=== PATIENT | female | born 2000 | race Hispanic/Latino ===

== ENCOUNTER 2022-04-12 11:30 | Emergency (ER) | payer OTHER, SELFPAY ==
[2022-04-12 11:57] VITALS: BP 113/64; PULSE 86; RESP 16; TEMP 36.3; O2SAT 100; BMI 30.1
[2022-04-12 12:36] LABS: Hematocrit 39.1 % (36-46); Hemoglobin 13.4 g/dL (12.0-16.0)
[2022-04-12 12:45] LABS: Bacteria Urine Few (2-10); Culture Indicated Urine Cult Not Indicated; RBC Urine 1-5/HPF (0-5/HPF); Squamous Epithelial Cell Urine 1-5 /HPF (0-5/HPF); WBC Urine 0-1/HPF (0-5/HPF)
[2022-04-12 13:29] VITALS: BP 102/64; PULSE 98; O2SAT 100
[2022-04-12 13:30] VITALS: BP 105/68; PULSE 91; O2SAT 100
[2022-04-12 13:36] LABS: HCG Quantitative /Beta subunit 73074 mIU/mL
[2022-04-12 14:00] VITALS: BP 111/72; PULSE 91; O2SAT 100
--- NOTE | 2022-04-12 14:19 | ED.PREGNANCY ---
HPI - <Lea Lazo PA-C - Last Filed: 04/12/22 14:33> General Chief complaint: Vaginal Bleeding Stated complaint: sent by miscarriage Time Seen by Provider: 04/12/22 12:14 Source: patient Mode of arrival: Ambulatory History of Present Illness HPI Narrative: 21-year-old female presents to the ED with 1 week of vaginal bleeding during . Patient states that her bleeding started 1 week prior, for which she was seen at the [facility], a ultrasound was performed to confirm a single intrauterine , serum hCG of 38,000. Patient went to the [facility] for a follow-up today, they sent her to the ED for further evaluation given that she has continued to spot. Patient states that her bleeding has stayed as spotting, she only sees blood when she wipes. Patient also endorses very sporadic, minimal pelvic cramping. Patient denies fever, chills, chest pain, shortness of breath. Patient has an OBGYN appointment with Dr. Vieira towards the end of this month. Related Data Allergies Allergy/AdvReac Type Severity Reaction Status Date / Time No Known Drug Allergies Allergy Verified 04/12/22 11:57 Review of Systems <Lea Lazo PA-C - Last Filed: 04/12/22 14:33> Review of Systems ROS Unobtainable: All systems reviewed & are unremarkable except as noted in HPI and below Constitutional Constitutional: Denies chills, Denies fatigue, Denies fever(s), Denies frequent falls, Denies lethargy and Denies weakness Eyes Eyes: Denies change in vision, Denies eye discharge, Denies irritation and Denies loss of vision ENT Ears, Nose, Mouth, and Throat: Denies change in voice, Denies dizziness, Denies neck pain, Denies sore throat and Denies throat swelling Cardiovascular Cardiovascular: Denies chest pain, Denies irregular heart rhythm, Denies lightheadedness, Denies palpitations, Denies dyspnea, Denies dyspnea on exertion and Denies orthopnea Respiratory Respiratory: Denies cough, Denies dyspnea, Denies dyspnea on exertion and Denies wheezing Gastrointestinal Gastrointestinal: Denies abdominal pain, Denies change in bowel habits, Denies diarrhea, Denies nausea and Denies vomiting Genitourinary Genitourinary: Reports abnormal vaginal bleeding, Denies hematuria, Denies flank pain, Denies urinary incontinence and Denies urinary urgency Musculoskeletal Musculoskeletal: Denies back pain, Denies muscle weakness, Denies neck pain, Denies numbness and Denies tingling Integumentary/Breasts Skin/Breast: Denies pruritus, Denies erythema, Denies rash and Denies wounds Neurologic Neurologic: Denies behavioral changes, Denies confusion, Denies dizziness, Denies frequent falls, Denies loss of vision, Denies numbness, Denies tingling and Denies weakness Psychiatric Psychiatric: Denies anxiety, Denies behavioral changes, Denies confusion, Denies depression, Denies homicidal ideation and Denies suicidal ideation Endocrine Endocrine: Denies fatigue, Denies flushing and Denies palpitations Hematologic/Lymphatic Hematologic/Lymphatic: Denies easy bruising Allergic/Immunologic Allergic/Immunologic: Denies urticaria, Denies throat swelling and Denies wheezing Exam <Lea Lazo PA-C - Last Filed: 04/12/22 14:33> Narrative Exam Narrative: Const General:?cooperative, healthy appearing and comfortable [facility] Head:?normal to inspection Ears:?hearing grossly normal bilaterally Nose:?external nose normal Face and sinus:?normal facial exam and sinuses nontender Mouth:?oral mucosae normal Throat:?posterior oropharynx normal Eyes General:?appearance normal, both eyes and all related structures Neck Neck:?normal visual inspection and no lymphadenopathy noted Resp Effort & Inspection:?normal respiratory effort Auscultation:?clear to auscultation bilaterally Cardio Rate:?regular rate Rhythm:?regular rhythm GI Abdomen is soft, nontender, nondistended. Neuro General:?patient alert, patient awake and patient oriented x3 Initial Vital Signs Initial Vital Signs: Vital Signs Temperature 97.3 F L 04/12/22 11:57 Pulse Rate 86 04/12/22 11:57 Respiratory Rate 16 04/12/22 11:57 Blood Pressure 113/64 04/12/22 11:57 Pulse Oximetry 100 04/12/22 11:57 Oxygen Delivery Method 04/12/22 11:57 <Jaiden Ingram DO - Last Filed: 04/12/22 15:16> Initial Vital Signs Initial Vital Signs: Vital Signs Temperature 97.3 F L 04/12/22 11:57 Pulse Rate 86 04/12/22 11:57 Respiratory Rate 16 04/12/22 11:57 Blood Pressure 113/64 04/12/22 11:57 Pulse Oximetry 100 04/12/22 11:57 Oxygen Delivery Method 04/12/22 11:57 Course <Lea Lazo PA-C - Last Filed: 04/12/22 14:33> Orders Ordered: ED Orders 04/12/22 12:05 Urine Microscopic Stat 04/12/22 12:09 ABO RH Type Stat HCG Quantitative /Beta subunit Stat Hemoglobin and Hematocrit Stat Vital Signs Vital signs: Vital Signs - 8 hr 04/12/22 11:57 04/12/22 13:29 04/12/22 13:29 Temperature 97.3 F L Pulse Rate 86 98 H Respiratory Rate 16 Blood Pressure 113/64 102/64 Pulse Oximetry 100 100 Oxygen Delivery Method Room Air 04/12/22 13:30 04/12/22 13:30 04/12/22 14:00 Temperature Pulse Rate 91 H Respiratory Rate Blood Pressure 105/68 111/72 Pulse Oximetry 100 Oxygen Delivery Method 04/12/22 14:00 04/12/22 14:20 04/12/22 14:20 Temperature Pulse Rate 91 H 83 Respiratory Rate Blood Pressure 124/62 Pulse Oximetry 100 100 Oxygen Delivery Method <Jaiden Ingram DO - Last Filed: 04/12/22 15:16> Orders Ordered: ED Orders 04/12/22 12:05 Urine Microscopic Stat 04/12/22 12:09 ABO RH Type Stat HCG Quantitative /Beta subunit Stat Hemoglobin and Hematocrit Stat Vital Signs Vital signs: Vital Signs - 8 hr 04/12/22 11:57 04/12/22 13:29 04/12/22 13:29 Temperature 97.3 F L Pulse Rate 86 98 H Respiratory Rate 16 Blood Pressure 113/64 102/64 Pulse Oximetry 100 100 Oxygen Delivery Method Room Air 04/12/22 13:30 04/12/22 13:30 04/12/22 14:00 Temperature Pulse Rate 91 H Respiratory Rate Blood Pressure 105/68 111/72 Pulse Oximetry 100 Oxygen Delivery Method 04/12/22 14:00 04/12/22 14:20 04/12/22 14:20 Temperature Pulse Rate 91 H 83 Respiratory Rate Blood Pressure 124/62 Pulse Oximetry 100 100 Oxygen Delivery Method MDM - OB/Uterine Contractions <JOEL Burns Last Filed: 04/12/22 14:33> Lab Data 02/14/23 12:09 Labs: Lab Results 04/12/22 04/12/22 04/12/22 Range/Units 12:05 12:09 12:09 Hgb 13.4 (12.0-16.0) g/dL Hct 39.1 (36-46) % HCG, Quant 44425 mIU/mL Urine RBC 1-5/hpf (0-5/HPF) Urine WBC 0-1/hpf (0-5/HPF) Ur Squamous Epith Cells 1-5 /hpf (0-5/HPF) Urine Bacteria Few (2-10) H (None) Ur Culture Indicated? Cult not indicated Blood Type 04/12/22 Range/Units 12:09 Hgb (12.0-16.0) g/dL Hct (36-46) % HCG, Quant mIU/mL Urine RBC (0-5/HPF) Urine WBC (0-5/HPF) Ur Squamous Epith Cells (0-5/HPF) Urine Bacteria (None) Ur Culture Indicated? Blood Type O Positive Point of Care Testing Test Results Positive Urine Dip Bedside Urine Glucose Negative Bedside Urine Bilirubin - Negative Bedside Urine Ketone - Negative Urine Specific [place] 1.010 Bedside Urine Occult Blood +++ Bedside Urine pH 6.0 Bedside Urine Protein - Negative Bedside Urine Urobilinogen - Negative Bedside Urine Nitrite - Negative Bedside Urine Leukocytes - Negative Esterase MDM Narrative Medical decision making narrative: 21-year-old female presents to the ED with 1 week of vaginal bleeding during . Concern for vaginal bleeding during versus threatened miscarriage versus anemia versus other. Obtained H&H, Rh type, quantitative hCG. Quantitative hCG today 74,000 compared to 38,000 last week. H&H is stable. Patient is O positive, RhoGAM not indicated. Results were discussed with patient, patient agrees to follow-up with OBGYN today to do serial HCGs and monitoring. ED return precautions were also discussed with patient. Patient verbalized understanding. Medical records reviewed: Yes <Jaiden Ingram DO - Last Filed: 04/12/22 15:16> Lab Data Labs: Lab Results 04/12/22 04/12/22 04/12/22 Range/Units 12:05 12:09 12:09 Hgb 13.4 (12.0-16.0) g/dL Hct 39.1 (36-46) % HCG, Quant 92465 mIU/mL Urine RBC 1-5/hpf (0-5/HPF) Urine WBC 0-1/hpf (0-5/HPF) Ur Squamous Epith Cells 1-5 /hpf (0-5/HPF) Urine Bacteria Few (2-10) H (None) Ur Culture Indicated? Cult not indicated Blood Type 04/12/22 Range/Units 12:09 Hgb (12.0-16.0) g/dL Hct (36-46) % HCG, Quant mIU/mL Urine RBC (0-5/HPF) Urine WBC (0-5/HPF) Ur Squamous Epith Cells (0-5/HPF) Urine Bacteria (None) Ur Culture Indicated? Blood Type O Positive Point of Care Testing Test Results Positive Urine Dip Bedside Urine Glucose Negative Bedside Urine Bilirubin - Negative Bedside Urine Ketone - Negative Urine Specific [place] 1.010 Bedside Urine Occult Blood +++ Bedside Urine pH 6.0 Bedside Urine Protein - Negative Bedside Urine Urobilinogen - Negative Bedside Urine Nitrite - Negative Bedside Urine Leukocytes - Negative Esterase Discharge Plan Departure Patient Disposition: Home Clinical Impression: Vaginal bleeding Instructions: DI for Vaginal Bleeding During Activity Restrictions/Additional Instructions: You were evaluated in the ED today for vaginal bleeding during . Your blood tests are reassuring in [place] [address], which is elevated compared to your prior value of 38,000. Your hemoglobin and hematocrit is also stable, which means you are not anemic. Your bleeding is minimal and more consistent with spotting, with minimal cramping. Your ultrasound last week did show a intrauterine which is also reassuring. At this point, it is advised that you follow-up with your OBGYN Dr. Vieira so they can continue to track your and do repeat HCGs. Return to the ED if you experience increased bright red bleeding, worsening abdominal cramping. Referrals: Provider,David BARRIENTOS [Primary Care Provider] - Stand Alone Forms: Patient Portal/API <Jaiden Ingram DO - Last Filed: 04/12/22 15:16> Cosign ED Attending Cristi Attestation: I was immediately available in the department for consultation. This documentation has been reviewed and I agree with assessment and plan. Supervised by Jaiden Ingram DO
[2022-04-12 14:20] VITALS: BP 124/62; PULSE 83; O2SAT 100
== END 2022-04-12 14:30 | disposition home or self-care (01) ==
PROVIDERS: Emergency Medicine; Emergency Provider Student in an Organized Health Care Education/Training Program
DX: O46.90 Antepartum hemorrhage, unspecified, unspecified trimester (principal)
CPT/HCPCS: 36415; 81003; 81015; 81025; 84702; 85014; 85018; 86900; 86901; 99283

== ENCOUNTER 2024-01-16 12:24 | Emergency (ER) | payer OTHER, SELFPAY ==
[2024-01-16 12:51] VITALS: BP 109/76; PULSE 115; RESP 20; TEMP 37; O2SAT 97; BMI 32.1
--- NOTE | 2024-01-16 13:35 | EKG_ITS ---
[address] [address] Test Date: 2024-01-16 Pat Name: Tete Cox Department: [facility] Room: Gender: Female Zipper Repairer: DAVID : [id number] Requested By: Order Number: [id number] Reading MD: Brandon Elise Measurements Intervals [place] Rate: 108 P: 24 CT: 126 QRS: 26 QRSD: 88 T: 13 QT: 328 QTc: 439 Interpretive Statements Sinus tachycardia Electronically Signed On 01-17-2024 19:03:42 PST by Brandon Elise
--- NOTE | 2024-01-16 15:03 | DI.RAD.S_ITS ---
PROCEDURE: XR CHEST 2V INDICATIONS: Tachycardia TECHNIQUE: 2 views of the chest were acquired. COMPARISON: None. FINDINGS: Surgical changes and devices: None. Lungs and pleura: Lungs are clear. No pleural effusions or pneumothorax. Mediastinum: Mediastinal contours are normal. Heart size is normal. Bones and chest wall: No suspicious bony abnormalities. Soft tissues appear unremarkable. IMPRESSION: No acute cardiopulmonary abnormality is seen. Dictated by: Edward Kilgore M.D. on 01/16/2024 at 15:33 Approved by: Edward Kilgore M.D. on 01/16/2024 at 15:33
[2024-01-16 15:05] LABS: Add Manual Diff / Slide Review NO; Basophils Absolute Auto 100 /uL (0-100); Basophils Percent Auto 0.9 % (0-2); Eosinophils Absolute Auto 100 /uL (0-450); Eosinophils Percent Auto 1.2 % (2-4); Hematocrit 43.4 % (36-46); Hemoglobin 14.8 g/dL (12.0-16.0); Lymphocytes Absolute Auto 2800 /uL (1100-4500); Mean Corpuscular HGB Conc 34.2 % (30-36); Mean Corpuscular Hemoglobin 31.9 PG (26-34); Mean Corpuscular Volume 93.5 fL (80-100); Monocytes Absolute Auto 600 /uL (0-900); Monocytes Percent Auto 8.1 % (3-14); Neutrophils Absolute Auto 3900 /uL (1500-7000); Neutrophils Percent Auto 51.8 % (50-75); Platelet Count 305 X10^3/uL (150-400); Red Blood Cell Count 4.65 X10^6/uL (4.0-5.2); Red Cell Distribution Width 12.2 % (11.6-14.8); White Blood Cell Count 7.5 X10^3/uL (4.5-11.0)
[2024-01-16 15:23] LABS: Alanine Aminotransferase 25 IU/L (<35); Alkaline Phosphatase 82 U/L (38-126); Aspartate Aminotransferase 30 IU/L (14-36); BUN Creatinine Ratio 13.5 (6-22); Bilirubin Total 0.5 mg/dL (0.2-1.3); Blood Urea Nitrogen 10 mg/dL (7-17); Calcium 9.3 mg/dL (8.4-10.2); Chloride 107 mmol/L (98-107); Creatine Kinase 75 U/L (30-135); Estimated Glomerular Filt Rate > 60 mL/min (>60); Glucose 90 mg/dL (70-100); Lipase 160 U/L (23-300); Potassium 3.7 mmol/L (3.4-5.1); Sodium 139 mmol/L (137-145); Total Protein 7.3 g/dL (6.3-8.2)
[2024-01-16 15:24] LABS: Albumin 4.7 g/dL (3.5-5.0); Albumin Globulin Ratio 1.8 (1.0-2.8); Carbon Dioxide 22 mmol/L (22-32); Globulin 2.6 g/dL (1.7-4.1); HEMOLYSIS 17 (0-50)
[2024-01-16 15:35] LABS: Troponin I < 0.012 ng/mL (0.01-0.034)
[2024-01-16 15:47] LABS: NT-proBNP (BNP-Adult 18+) < 20 pg/mL (<125)
[2024-01-16 15:57] LABS: Free T3, Triiodothyronine Free 8.66 pg/mL (2.77-5.27); Free T4, Direct Thyroxine 2.14 ng/dL (0.78-2.19)
[2024-01-16 16:12] LABS: Thyroid Stimulating Hormone < 0.015 uIU/mL (0.47-4.68)
[2024-01-16 17:21] VITALS: BP 132/85; PULSE 102; RESP 18; O2SAT 99
--- NOTE | 2024-01-22 13:31 | ED_ITS ---
HPI - Recheck/Abnormal Lab/Rx <Lea Lazo PA-C - Last Filed: 01/22/24 15:59> General Chief Complaint: Recheck/Abnormal Lab/Rx Stated Complaint: Sent by MD; Thyroid is really high Time Seen by Provider: 01/16/24 13:34 Source: patient Mode of arrival: Ambulatory History of Present Illness HPI narrative: 23-year-old female with past medical history bipolar disorder presents to the ED for further evaluation for abnormal thyroid levels. Patient has had a high heart rate for the last 6-7 years, has not been tested for thyroid abnormalities until recently. [facility], sent to the ED when they found abnormal thyroid levels. Patient states that her TSH was low, T3 was high. patient does endorse a rapid heart rate, anxiety. Patient has had arrange of GI discomforts including constipation, diarrhea. Patient takes lamotrigine and quetiapine for bipolar disorder. Patient denies chest pain, shortness of breath, abdominal pain, fever, chills, dysuria, lightheadedness, dizziness, syncope. patient does endorse feeling intermittently shaky, increased anxiety, very sensitive to heat, increased fatigue, body aches. Patient states that these symptoms have been noticeable over the past year, but worsened after giving to her child 8 months ago. [facility] Related Data Previous Rx's Medication Instructions Recorded propranolol 40 mg tablet 40 mg PO BID 30 days #60 tabs 01/16/24 Allergies Allergy/AdvReac Type Severity Reaction Status Date / Time No Known Drug Allergies Allergy Verified 01/16/24 13:03 Review of Systems <Lea Lazo PA-C - Last Filed: 01/22/24 15:59> Constitutional Constitutional: Denies chills, Reports fatigue, Denies fever(s), Denies frequent falls, Denies lethargy and Denies weakness Eyes Eyes: Denies change in vision, Denies eye discharge, Denies irritation and Denies loss of vision ENT Ears, Nose, Mouth, and Throat: Denies change in voice, Denies dizziness, Denies neck pain, Denies sore throat and Denies throat swelling Cardiovascular Cardiovascular: Denies chest pain, Reports rapid heart rate, Denies irregular heart rhythm, Denies lightheadedness, Denies palpitations, Denies dyspnea, Denies dyspnea on exertion and Denies orthopnea Respiratory Respiratory: Denies cough, Denies dyspnea, Denies dyspnea on exertion and Denies wheezing Gastrointestinal Gastrointestinal: Denies abdominal pain, Denies change in bowel habits, Denies diarrhea, Denies nausea and Denies vomiting Musculoskeletal Musculoskeletal: Denies neck pain and Denies numbness Integumentary/Breasts Skin/Breast: Denies pruritus, Denies erythema, Denies rash and Denies wounds Neurologic Neurologic: Denies behavioral changes, Denies confusion, Denies dizziness, Denies frequent falls, Denies loss of vision, Denies numbness and Denies weakness Psychiatric Psychiatric: Denies anxiety, Denies behavioral changes, Denies confusion, Denies depression, Denies homicidal ideation and Denies suicidal ideation Endocrine Endocrine: Reports fatigue, Denies flushing, Reports heat intolerance and Denies palpitations Hematologic/Lymphatic Hematologic/Lymphatic: Denies easy bruising Allergic/Immunologic Allergic/Immunologic: Denies urticaria, Denies throat swelling and Denies wheezing Patient History <Lea Lazo PA-C - Last Filed: 01/22/24 15:59> Social History Smoking Status: Former smoker Smoking Status: Former smoker Substance Use Type: does not use Exam <Lea Lazo PA-C - Last Filed: 01/22/24 15:59> Narrative Exam Narrative: Const General:?cooperative, healthy appearing and comfortable [facility] Head:?normal to inspection Ears:?hearing grossly normal bilaterally Nose:?external nose normal Face and sinus:?normal facial exam and sinuses nontender Mouth:?oral mucosae normal Throat:?posterior oropharynx normal Eyes General:?appearance normal, both eyes and all related structures Neck Neck:?normal visual inspection and no lymphadenopathy noted Resp Effort & Inspection:?normal respiratory effort Auscultation:?clear to auscultation bilaterally Cardio Rate:? Tachycardic Rhythm:?regular rhythm GI abdomen is soft, nondistended, nontender to palpation. Neuro General:?patient alert, patient awake and patient oriented x3 Initial Vital Signs Initial Vital Signs: Vital Signs Temperature 98.6 F 01/16/24 12:51 Pulse Rate 115 H 01/16/24 12:51 Respiratory Rate 20 01/16/24 12:51 Blood Pressure 109/76 01/16/24 12:51 Pulse Oximetry 97 01/16/24 12:51 Oxygen Delivery Method Room Air 01/16/24 12:51 <Janki Craig DO - Last Filed: 01/23/24 04:00> Initial Vital Signs Initial Vital Signs: Vital Signs Temperature 98.6 F 01/16/24 12:51 Pulse Rate 115 H 01/16/24 12:51 Respiratory Rate 20 01/16/24 12:51 Blood Pressure 109/76 01/16/24 12:51 Pulse Oximetry 97 01/16/24 12:51 Oxygen Delivery Method Room Air 01/16/24 12:51 MDM - Recheck/Abnormal Lab/Rx <Lea Lazo PA-C - Last Filed: 01/22/24 15:59> Lab Data 01/16/24 14:50 01/16/24 14:50 Labs: Lab Results 01/16/24 Range/Units 14:50 WBC 7.5 (4.5-11.0) X10^3/uL RBC 4.65 (4.0-5.2) X10^6/uL Hgb 14.8 (12.0-16.0) g/dL Hct 43.4 (36-46) % MCV 93.5 (80-100) fL MCH 31.9 (26-34) PG MCHC 34.2 (30-36) % RDW 12.2 (11.6-14.8) % Plt Count 305 (150-400) X10^3/uL Neut % (Auto) 51.8 (50-75) % Lymph % (Auto) 38.0 (25-40) % [place] % (Auto) 8.1 (3-14) % Eos % (Auto) 1.2 L (2-4) % Baso % (Auto) 0.9 (0-2) % Neut # (Auto) 3900 (1357-6371) /uL Lymph # (Auto) 2800 (8813-8993) /uL [place] # (Auto) 600 (0-900) /uL Eos # (Auto) 100 (0-450) /uL Baso # (Auto) 100 (0-100) /uL Sodium 139 (137-145) mmol/L Potassium 3.7 (3.4-5.1) mmol/L Chloride 107 (98-107) mmol/L Carbon Dioxide 22 (22-32) mmol/L BUN 10 (7-17) mg/dL Creatinine 0.74 (0.52-1.04) mg/dL Estimated GFR > 60 (>60) mL/min BUN/Creatinine Ratio 13.5 (6-22) Glucose 90 (70-100) mg/dL Calcium 9.3 (8.4-10.2) mg/dL Total Bilirubin 0.5 (0.2-1.3) mg/dL AST 30 (14-36) IU/L ALT 25 (<35) IU/L Alkaline Phosphatase 82 (38-126) U/L Total Creatine Kinase 75 (30-135) U/L Troponin I < 0.012 (0.01-0.034) ng/mL NT-Pro-B Natriuret Pep < 20 (<125) pg/mL Total Protein 7.3 (6.3-8.2) g/dL Albumin 4.7 (3.5-5.0) g/dL Globulin 2.6 (1.7-4.1) g/dL Albumin/Globulin Ratio 1.8 (1.0-2.8) Lipase 160 (23-300) U/L TSH < 0.015 L (0.47-4.68) uIU/mL Free T4 2.14 (0.78-2.19) ng/dL Free T3 8.66 H (2.77-5.27) pg/mL Point of Care Testing Test Results Negative Urine Dip Bedside Urine Glucose Negative Bedside Urine Bilirubin - Negative Bedside Urine Ketone - Negative Urine Specific [place] 1.010 Bedside Urine Occult Blood - Negative Bedside Urine pH 6.0 Bedside Urine Protein - Negative Bedside Urine Urobilinogen - Negative Bedside Urine Nitrite - Negative Bedside Urine Leukocytes - Negative Esterase MDM Narrative Medical decision making narrative: 23-year-old female with past medical history bipolar disorder presents to the ED for further evaluation for abnormal thyroid levels. Concern for hyperthyroidism versus thyroid storm versus versus URI versus other infection versus cardiac etiology versus other. Will obtain labs, TSH, free T3 and T4, troponin, BNP, chest x-ray, EKG, UA, U preg. EKG is sinus tachycardia without acute ST-T changes. No axis deviation. Chest x-ray without acute findings. TSH less than 0.015, free T4 within normal limits at 2.14, elevated free T3 at 8.66. all other labs within normal limits. UA without UTI. U preg is negative. Labs indicate thyrotoxicosis, however Servin-Wartofsky Point Scale scores at 20, which is unlikely to represent a thyroid storm. Will start patient on propranolol for the tachycardia. Discussed findings with patient. Explained to patient that the propranolol is not a definitive treatment for her thyroid abnormalities, however is a temporizing measure to reduce the load on her heart. explained to patient that it is imperative for her to follow-up with an computerized machine fabric cutter for further workup and treatment for the thyroid abnormalities. ED return precautions discussed with patient. Patient verbalized understanding. Medical records reviewed: Yes <Janki Craig DO - Last Filed: 01/23/24 04:00> Lab Data Labs: Lab Results 01/16/24 Range/Units 14:50 WBC 7.5 (4.5-11.0) X10^3/uL RBC 4.65 (4.0-5.2) X10^6/uL Hgb 14.8 (12.0-16.0) g/dL Hct 43.4 (36-46) % MCV 93.5 (80-100) fL MCH 31.9 (26-34) PG MCHC 34.2 (30-36) % RDW 12.2 (11.6-14.8) % Plt Count 305 (150-400) X10^3/uL Neut % (Auto) 51.8 (50-75) % Lymph % (Auto) 38.0 (25-40) % [place] % (Auto) 8.1 (3-14) % Eos % (Auto) 1.2 L (2-4) % Baso % (Auto) 0.9 (0-2) % Neut # (Auto) 3900 (5748-3102) /uL Lymph # (Auto) 2800 (3482-5603) /uL [place] # (Auto) 600 (0-900) /uL Eos # (Auto) 100 (0-450) /uL Baso # (Auto) 100 (0-100) /uL Sodium 139 (137-145) mmol/L Potassium 3.7 (3.4-5.1) mmol/L Chloride 107 (98-107) mmol/L Carbon Dioxide 22 (22-32) mmol/L BUN 10 (7-17) mg/dL Creatinine 0.74 (0.52-1.04) mg/dL Estimated GFR > 60 (>60) mL/min BUN/Creatinine Ratio 13.5 (6-22) Glucose 90 (70-100) mg/dL Calcium 9.3 (8.4-10.2) mg/dL Total Bilirubin 0.5 (0.2-1.3) mg/dL AST 30 (14-36) IU/L ALT 25 (<35) IU/L Alkaline Phosphatase 82 (38-126) U/L Total Creatine Kinase 75 (30-135) U/L Troponin I < 0.012 (0.01-0.034) ng/mL NT-Pro-B Natriuret Pep < 20 (<125) pg/mL Total Protein 7.3 (6.3-8.2) g/dL Albumin 4.7 (3.5-5.0) g/dL Globulin 2.6 (1.7-4.1) g/dL Albumin/Globulin Ratio 1.8 (1.0-2.8) Lipase 160 (23-300) U/L TSH < 0.015 L (0.47-4.68) uIU/mL Free T4 2.14 (0.78-2.19) ng/dL Free T3 8.66 H (2.77-5.27) pg/mL Point of Care Testing Test Results Negative Urine Dip Bedside Urine Glucose Negative Bedside Urine Bilirubin - Negative Bedside Urine Ketone - Negative Urine Specific [place] 1.010 Bedside Urine Occult Blood - Negative Bedside Urine pH 6.0 Bedside Urine Protein - Negative Bedside Urine Urobilinogen - Negative Bedside Urine Nitrite - Negative Bedside Urine Leukocytes - Negative Esterase Discharge Plan Departure Patient Disposition: Home Clinical Impression: Thyrotoxicosis Qualifiers: Thyrotoxicosis type: unspecified thyrotoxicosis type Thyrotoxic crisis or storm presence: without thyrotoxic crisis or storm Qualified Code(s): E05.90 - Thyrotoxicosis, unspecified without thyrotoxic crisis or storm Instructions: Hyperthyroidism Activity Restrictions/Additional Instructions: You were evaluated in the emergency department today for elevated thyroid levels and high heart rate. Your heart rate was as high as 115 today. Your thyroid levels were abnormal. Your TSH was less than 0.015. The free T4 was normal at 2.14. Free T3 was high at 8.66. The rest of your workup was normal. You are being prescribed propranolol to lower your heart rate. You are currently stable, however uncontrolled hyperthyroidism can result in emergencies including seizures, coma, . It is imperative for you to follow-up with an computerized machine fabric cutter as soon as possible for further evaluation and workup for the hyperthyroidism. Return to the ED if you have worsening symptoms including high heart rate, chest pain, shortness of breath. Prescriptions: New propranolol 40 mg tablet 40 mg PO BID 30 Days Qty: 60 0RF Referrals: ProviderDavid [Primary Care Provider] - Stand Alone Forms: Patient Portal/API/Survey ED Sign-out <Janki Craig DO - Last Filed: 01/23/24 04:00> Cosign ED Attending Eugeneature Attestation: I was immediately available in the department for consultation. Case was discussed patient's TSH is elevated she was slightly tachycardic but no other signs of thyroid storm. Patient was started on a course of propranolol with plan for follow up with primary care for further workup and to start appropriate treatment.
== END 2024-01-16 17:34 | disposition home or self-care (01) ==
PROVIDERS: Emergency Medicine; Emergency Provider Student in an Organized Health Care Education/Training Program
DX: E05.90 Thyrotoxicosis, unspecified without thyrotoxic crisis or storm (principal); R00.0 Tachycardia, unspecified
CPT/HCPCS: 36415; 71046; 80053; 81003; 81025; 82550; 83690; 83880; 84439; 84443; 84481; 84484; 85025; 93005; 99283; 99284